=== PATIENT | male | born 1975 | race Caucasian/White ===

== ENCOUNTER 2018-05-15 16:57 | Emergency (ER) | payer OTHER ==
[2018-05-15 17:38] VITALS: TEMP 98.2
[2018-05-15] MEDS ORDERED: IPRATROPIUM-ALBUTEROL 3 ML NEB INHALATION STA (18:11)
--- NOTE | 2018-05-15 18:13 | ED ---
General Adult HPI - General Chief complaint: Shortness of Breath Stated complaint: SOB Time Seen by Provider: 05/15/18 17:54 Source: patient, RN notes reviewed, old records reviewed Mode of arrival: ambulatory Limitations: no limitations - History of Present Illness Initial comments: 42-year-old male presents for evaluation of dyspnea, cough, chest tightness. Symptoms began today. He has had nonproductive cough. Denies URI symptoms. Denies fever or chills. Chest pain and tightness is substernal and left-sided chest. Patient denies significant abdominal pain. Denies vomiting or diarrhea. He has past medical history of CAD with OK approximately 10 years ago. No history of asthma or COPD. Patient is a nonsmoker. - Related Data Home Medications Medication Instructions Recorded Confirmed Albuterol Inhaler [Ventolin Hfa 1 puff INHALATION RT-QID 05/15/18 05/15/18 Inhaler] Amitriptyline HCl [Elavil] 25 mg PO HS 05/15/18 05/15/18 Cholecalciferol [Vitamin D3] 5,000 unit PO DAILY 05/15/18 05/15/18 Cyclobenzaprine [Flexeril] 10 mg PO TID PRN 05/15/18 05/15/18 Gabapentin 800 mg PO QID 05/15/18 05/15/18 Meloxicam [Mobic] 15 mg PO DAILY 05/15/18 05/15/18 Metoprolol Tartrate [Lopressor] 25 mg PO HS 05/15/18 05/15/18 Omeprazole 20 mg PO DAILY 05/15/18 05/15/18 Simvastatin [Zocor] 20 mg PO HS 05/15/18 05/15/18 Topiramate [Qudexy Xr] 50 mg PO DAILY 05/15/18 05/15/18 Triamterene-Hctz 37.5-25Mg 1 tab PO DAILY 05/15/18 05/15/18 [Maxzide 37.5-25] tiZANidine [Zanaflex] 8 mg PO BID PRN 05/15/18 05/15/18 traMADol HCL [Ultram] 50 mg PO BID 05/15/18 05/15/18 Previous Rx's Medication Instructions Recorded Oseltamivir [Tamiflu] 75 mg PO Q12HR #10 cap 05/15/18 Allergies Allergy/AdvReac Type Severity Reaction Status Date / Time No Known Allergies Allergy Verified 05/15/18 18:28 Review of Systems ROS Statement: Those systems with pertinent positive or pertinent negative responses have been documented in the HPI. ROS Other: All systems not noted in ROS Statement are negative. Past Medical History Past Medical History: Coronary Artery Disease (CAD), Hyperlipidemia, Hypertension, Myocardial Infarction ([place]) History of Any Multi-Drug Resistant Organisms: None Reported Past Surgical History: No Surgical Hx Reported Past Psychological History: No Psychological Hx Reported Smoking Status: Never smoker Past Alcohol Use History: None Reported Past Drug Use History: None Reported General Exam Limitations: no limitations General appearance: alert, in no apparent distress Head exam: Present: atraumatic, normocephalic Eye exam: Present: normal appearance, EOMI ENT exam: Present: normal exam Neck exam: Present: normal inspection. Absent: tenderness, meningismus Respiratory exam: Present: respiratory distress (mild), wheezes, rhonchi Cardiovascular Exam: Present: normal rhythm, tachycardia GI/Abdominal exam: Present: soft. Absent: distended, tenderness Extremities exam: Present: normal inspection, normal capillary refill. Absent: pedal edema, calf tenderness Neurological exam: Present: alert, oriented X3, CN II-XII intact. Absent: motor sensory deficit Psychiatric exam: Present: normal affect, normal mood Skin exam: Present: warm, dry, intact. Absent: cyanosis, diaphoretic, erythema Course Vital Signs 05/15/18 05/15/18 05/15/18 17:31 18:38 18:49 Temperature 98.2 F Pulse Rate 121 H 128 H 123 H Respiratory 20 20 20 Rate Blood Pressure 112/57 O2 Sat by Pulse 95 Oximetry 05/15/18 19:30 Temperature Pulse Rate 118 H Respiratory Rate Blood Pressure 134/79 O2 Sat by Pulse 96 Oximetry - Reevaluation(s) Reevaluation #1: 05/15/18 20:15 Patient's symptoms improved with albuterol, does have albuterol at home EKG Findings - EKG Comments: EKG Findings:: EKG: Sinus tachycardia, some baseline artifact, no definitive signs of acute ischemia, no ST segment elevation, ventricular rate of 121, NV interval 148, QRS duration 86, QTC 448 Medical Decision Making - Medical Decision Making 42-year-old male with cough, dyspnea, and chest tightness. Patient's symptoms began today. Denies fever or chills. Denies URI symptoms. Cough is dry in nature. Workup in the emergency department reveals normal CBC, CMP shows mild dehydration with creatinine 1.32, lactic acid normal 1.5, d-dimer and troponin are negative. Chest x-ray negative for focal pneumonia. Patient is influenza a positive. Given the duration of his symptoms will be initiated on Tamiflu. - Lab Data Result diagrams: 05/15/18 18:10 05/15/18 18:10 Lab Results 05/15/18 05/15/18 05/15/18 Range/Units 18:10 18:10 18:10 WBC 10.3 (3.8-10.6) k/uL RBC 5.72 (4.30-5.90) m/uL Hgb 16.5 (13.0-17.5) gm/dL Hct 48.5 (39.0-53.0) % MCV 84.8 (80.0-100.0) fL MCH 28.8 (25.0-35.0) pg MCHC 33.9 (31.0-37.0) g/dL RDW 13.0 (11.5-15.5) % Plt Count 238 (150-450) k/uL Neutrophils % 85 % Lymphocytes % 5 % Monocytes % 7 % Eosinophils % 1 % Basophils % 0 % Neutrophils # 8.7 H (1.3-7.7) k/uL Lymphocytes # 0.5 L (1.0-4.8) k/uL Monocytes # 0.7 (0-1.0) k/uL Eosinophils # 0.1 (0-0.7) k/uL Basophils # 0.0 (0-0.2) k/uL PT 10.3 (9.0-12.0) sec INR 1.0 (<1.2) APTT 26.6 (22.0-30.0) sec D-Dimer 0.40 (<0.60) mg/L FEU Sodium 135 L (137-145) mmol/L Potassium 3.5 (3.5-5.1) mmol/L Chloride 98 (98-107) mmol/L Carbon Dioxide 26 (22-30) mmol/L Anion Gap 11 mmol/L BUN 15 (9-20) mg/dL Creatinine 1.33 H (0.66-1.25) mg/dL Est GFR (CKD-EPI)AfAm 75 (>60 ml/min/1.73 sqM) Est GFR (CKD-EPI)NonAf 65 (>60 ml/min/1.73 sqM) Glucose 116 H (74-99) mg/dL Plasma Lactic Acid Leonard (0.7-2.0) mmol/L Calcium 10.3 H (8.4-10.2) mg/dL Magnesium 1.8 (1.6-2.3) mg/dL Total Bilirubin 0.8 (0.2-1.3) mg/dL AST 60 H (17-59) U/L ALT 103 H (21-72) U/L Alkaline Phosphatase 83 (38-126) U/L Troponin I (0.000-0.034) ng/mL NT-Pro-B Natriuret Pep pg/mL Total Protein 7.4 (6.3-8.2) g/dL Albumin 4.4 (3.5-5.0) g/dL Influenza Type A RNA (Not Detectd) Influenza Type B (PCR) (Not Detectd) 05/15/18 05/15/18 05/15/18 Range/Units 18:10 18:10 18:10 WBC (3.8-10.6) k/uL RBC (4.30-5.90) m/uL Hgb (13.0-17.5) gm/dL Hct (39.0-53.0) % MCV (80.0-100.0) fL MCH (25.0-35.0) pg MCHC (31.0-37.0) g/dL RDW (11.5-15.5) % Plt Count (150-450) k/uL Neutrophils % % Lymphocytes % % Monocytes % % Eosinophils % % Basophils % % Neutrophils # (1.3-7.7) k/uL Lymphocytes # (1.0-4.8) k/uL Monocytes # (0-1.0) k/uL Eosinophils # (0-0.7) k/uL Basophils # (0-0.2) k/uL PT (9.0-12.0) sec INR (<1.2) APTT (22.0-30.0) sec D-Dimer (<0.60) mg/L FEU Sodium (137-145) mmol/L Potassium (3.5-5.1) mmol/L Chloride (98-107) mmol/L Carbon Dioxide (22-30) mmol/L Anion Gap mmol/L BUN (9-20) mg/dL Creatinine (0.66-1.25) mg/dL Est GFR (CKD-EPI)AfAm (>60 ml/min/1.73 sqM) Est GFR (CKD-EPI)NonAf (>60 ml/min/1.73 sqM) Glucose (74-99) mg/dL Plasma Lactic Acid Leonard (0.7-2.0) mmol/L Calcium (8.4-10.2) mg/dL Magnesium (1.6-2.3) mg/dL Total Bilirubin (0.2-1.3) mg/dL AST (17-59) U/L ALT (21-72) U/L Alkaline Phosphatase (38-126) U/L Troponin I <0.012 (0.000-0.034) ng/mL NT-Pro-B Natriuret Pep 62 pg/mL Total Protein (6.3-8.2) g/dL Albumin (3.5-5.0) g/dL Influenza Type A RNA Detected H (Not Detectd) Influenza Type B (PCR) Not Detected (Not Detectd) 05/15/18 Range/Units 18:10 WBC (3.8-10.6) k/uL RBC (4.30-5.90) m/uL Hgb (13.0-17.5) gm/dL Hct (39.0-53.0) % MCV (80.0-100.0) fL MCH (25.0-35.0) pg MCHC (31.0-37.0) g/dL RDW (11.5-15.5) % Plt Count (150-450) k/uL Neutrophils % % Lymphocytes % % Monocytes % % Eosinophils % % Basophils % % Neutrophils # (1.3-7.7) k/uL Lymphocytes # (1.0-4.8) k/uL Monocytes # (0-1.0) k/uL Eosinophils # (0-0.7) k/uL Basophils # (0-0.2) k/uL PT (9.0-12.0) sec INR (<1.2) APTT (22.0-30.0) sec D-Dimer (<0.60) mg/L FEU Sodium (137-145) mmol/L Potassium (3.5-5.1) mmol/L Chloride (98-107) mmol/L Carbon Dioxide (22-30) mmol/L Anion Gap mmol/L BUN (9-20) mg/dL Creatinine (0.66-1.25) mg/dL Est GFR (CKD-EPI)AfAm (>60 ml/min/1.73 sqM) Est GFR (CKD-EPI)NonAf (>60 ml/min/1.73 sqM) Glucose (74-99) mg/dL Plasma Lactic Acid Leonard 1.5 (0.7-2.0) mmol/L Calcium (8.4-10.2) mg/dL Magnesium (1.6-2.3) mg/dL Total Bilirubin (0.2-1.3) mg/dL AST (17-59) U/L ALT (21-72) U/L Alkaline Phosphatase (38-126) U/L Troponin I (0.000-0.034) ng/mL NT-Pro-B Natriuret Pep pg/mL Total Protein (6.3-8.2) g/dL Albumin (3.5-5.0) g/dL Influenza Type A RNA (Not Detectd) Influenza Type B (PCR) (Not Detectd) Disposition Clinical Impression: Influenza A Disposition: HOME SELF-CARE Condition: Good Instructions (If sedation given, give patient instructions): Influenza (ED) Prescriptions: Oseltamivir [Tamiflu] 75 mg PO Q12HR #10 cap Is patient prescribed a controlled substance at d/c from ED?: No Referrals: Ruddy Szymanski MD [Primary Care Provider] - 1-2 days Time of Disposition: 20:16
[2018-05-15 18:29] LABS: Basophils % (A) 0 %; Eosinophils # (A) 0.1 k/uL (0-0.7); Eosinophils % (A) 1 %; HCT 48.5 % (39.0-53.0); HGB 16.5 gm/dL (13.0-17.5); Lymphocytes # (A) 0.5 k/uL (1.0-4.8); Lymphocytes % (A) 5 %; MCH 28.8 pg (25.0-35.0); MCHC 33.9 g/dL (31.0-37.0); MCV 84.8 fL (80.0-100.0); Mean Platelet Volume 7.5; Monocytes # (A) 0.7 k/uL (0-1.0); Monocytes % (A) 7 %; Neutrophils # (A) 8.7 k/uL (1.3-7.7); Neutrophils % (A) 85 %; Platelet Count 238 k/uL (150-450); RBC 5.72 m/uL (4.30-5.90); WBC 10.3 k/uL (3.8-10.6)
[2018-05-15 18:46] LABS: Albumin 4.4 g/dL (3.5-5.0); Calcium 10.3 mg/dL (8.4-10.2); D-Dimer 0.4 mg/L FEU (<0.60); Magnesium 1.8 mg/dL (1.6-2.3); Partial Thromboplastin Time 26.6 sec (22.0-30.0); Potassium 3.5 mmol/L (3.5-5.1); Prothrombin Time 10.3 sec (9.0-12.0); Total Bilirubin 0.8 mg/dL (0.2-1.3); Total Protein 7.4 g/dL (6.3-8.2)
[2018-05-15] MEDS ORDERED: OSELTAMIVIR 75 MG CAP PO STA (18:57)
--- NOTE | 2018-05-15 19:20 | XR ---
EXAMINATION TYPE: XR chest 2V DATE OF EXAM: 05/15/2018 COMPARISON: NONE HISTORY: Short of breath. Chest tightness TECHNIQUE: Frontal and lateral views of the chest are obtained. FINDINGS: Heart and mediastinum are normal. Lungs are clear. Diaphragm is normal. Bony thorax appear s normal. There are chest leads. IMPRESSION: Normal chest.
[2018-05-15] MEDS ORDERED: SODIUM CHLORIDE 0.9% 1,000 ML IV ONE (20:03)
[2018-05-15 21:03] VITALS: BP 125/95; PULSE 78; RESP 16
== END 2018-05-15 21:00 | disposition home or self-care (01) ==
LOC: EC 16:57
DX: J10.1 Influenza due to other identified influenza virus with other respiratory manifestations (principal); E78.5 Hyperlipidemia, unspecified; I10 Essential (primary) hypertension; I25.2 Old myocardial infarction; Z79.1 Long term (current) use of non-steroidal anti-inflammatories (NSAID); Z79.899 Other long term (current) drug therapy
CPT/HCPCS: 36415; 71046; 80053; 83605; 83735; 83880; 84484; 85025; 85379; 85610; 85730; 87040; 87502; 93005; 94640; 96360; 99285

== ENCOUNTER 2018-06-20 15:05 | Emergency (ER) | payer OTHER ==
[2018-06-20 15:34] VITALS: BP 161/120; PULSE 88; RESP 18; TEMP 98.6
[2018-06-20] MEDS ORDERED: DEXAMETHASONE SOD PHOSPHATE 10 MG/ML 1 ML VIAL IM STA (16:15)
[2018-06-20] MEDS ORDERED: IBUPROFEN 800 MG TAB PO STA (16:15)
--- NOTE | 2018-06-20 16:18 | ED ---
Extremity Problem HPI - General Chief complaint: Extremity Problem,Nontraumatic Stated complaint: Chest & Arm pain Time Seen by Provider: 06/20/18 15:44 Source: patient, RN notes reviewed, old records reviewed Mode of arrival: ambulatory Limitations: no limitations - History of Present Illness Initial comments: This is a 42-year-old male to the ER for evaluation. Patient presents today for evaluation of a left elbow pain pain down left arm. No trauma noted. Pain is mainly in the elbow which is something pins in the wound to his pinky. Patient has had prior x-rays with no significant findings. Her symptoms 3 weeks no modifying factors for chest pain was worse with moving worse with palpation. No headaches. No neck pain. MD Complaint: extremity pain, joint pain (Left elbow) -: week(s) (3) Location: left, upper extremity History of Same: Yes -: Yes arthralgia Radiation: proximal Severity scale (1-10): 3 Quality: aching, sharp Consistency: constant Improves with: nothing Worsens with: nothing - Related Data Home Medications Medication Instructions Recorded Confirmed Albuterol Inhaler [Ventolin Hfa 1 puff INHALATION RT-QID 05/15/18 05/15/18 Inhaler] Amitriptyline HCl [Elavil] 25 mg PO HS 05/15/18 05/15/18 Cholecalciferol [Vitamin D3] 5,000 unit PO DAILY 05/15/18 05/15/18 Cyclobenzaprine [Flexeril] 10 mg PO TID PRN 05/15/18 05/15/18 Gabapentin 800 mg PO QID 05/15/18 05/15/18 Meloxicam [Mobic] 15 mg PO DAILY 05/15/18 05/15/18 Metoprolol Tartrate [Lopressor] 25 mg PO HS 05/15/18 05/15/18 Omeprazole 20 mg PO DAILY 05/15/18 05/15/18 Simvastatin [Zocor] 20 mg PO HS 05/15/18 05/15/18 Topiramate [Qudexy Xr] 50 mg PO DAILY 05/15/18 05/15/18 Triamterene-Hctz 37.5-25Mg 1 tab PO DAILY 05/15/18 05/15/18 [Maxzide 37.5-25] tiZANidine [Zanaflex] 8 mg PO BID PRN 05/15/18 05/15/18 traMADol HCL [Ultram] 50 mg PO BID 05/15/18 05/15/18 Previous Rx's Medication Instructions Recorded Oseltamivir [Tamiflu] 75 mg PO Q12HR #10 cap 05/15/18 Naproxen [Naprosyn] 500 mg PO Q12HR PRN #30 tab 06/20/18 Allergies Allergy/AdvReac Type Severity Reaction Status Date / Time No Known Allergies Allergy Verified 06/20/18 15:34 Review of Systems ROS Statement: Those systems with pertinent positive or pertinent negative responses have been documented in the HPI. ROS Other: All systems not noted in ROS Statement are negative. Past Medical History Past Medical History: Coronary Artery Disease (CAD), Hyperlipidemia, Hypertensio n, Myocardial Infarction ([place]) History of Any Multi-Drug Resistant Organisms: None Reported Past Surgical History: No Surgical Hx Reported Past Psychological History: No Psychological Hx Reported Smoking Status: Never smoker Past Alcohol Use History: None Reported Past Drug Use History: None Reported General Exam - General Exam Comments Initial Comments: Patient does have tenderness to palpation over his ulnar artery, + tinel Limitations: no limitations General appearance: alert, in no apparent distress Head exam: Present: atraumatic, normocephalic, normal inspection Eye exam: Present: normal appearance, PERRL, EOMI. Absent: scleral icterus, conjunctival injection, periorbital swelling ENT exam: Present: normal exam, mucous membranes moist Neck exam: Present: normal inspection. Absent: tenderness, meningismus, lymphadenopathy Respiratory exam: Present: normal lung sounds bilaterally. Absent: respiratory distress, wheezes, rales, rhonchi, stridor Cardiovascular Exam: Present: regular rate, normal rhythm, normal heart sounds. Absent: systolic murmur, diastolic murmur, rubs, gallop, clicks GI/Abdominal exam: Present: soft, normal bowel sounds. Absent: distended, tenderness, guarding, rebound, rigid Extremities exam: Present: normal inspection, full ROM, normal capillary refill. Absent: tenderness, pedal edema, joint swelling, calf tenderness Back exam: Present: normal inspection Neurological exam: Present: alert, oriented X3, CN II-XII intact Psychiatric exam: Present: normal affect, normal mood Skin exam: Present: warm, dry, intact, normal color. Absent: rash Course Vital Signs 06/20/18 15:31 Temperature 98.6 F Pulse Rate 88 Respiratory 18 Rate Blood Pressure 161/120 O2 Sat by Pulse 96 Oximetry - Reevaluation(s) Reevaluation #1: 06/20/18 16:35 Patient's x-rays are reviewed medical record is reviewed Medical Decision Making - Medical Decision Making 42 male the ER for left elbow pain, left ulnar inflammation, paresthesia. 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
== END 2018-06-20 16:37 | disposition home or self-care (01) ==
LOC: EC 15:05
DX: G56.22 Lesion of ulnar nerve, left upper limb (principal); I25.10 Atherosclerotic heart disease of native coronary artery without angina pectoris; E78.5 Hyperlipidemia, unspecified; I10 Essential (primary) hypertension; I25.2 Old myocardial infarction; Z79.1 Long term (current) use of non-steroidal anti-inflammatories (NSAID); Z79.899 Other long term (current) drug therapy
CPT/HCPCS: 99285; 96372; J1100

== ENCOUNTER → 2018-08-21 | Outpatient (CLI) | payer OTHER ==
[~2018-08-21] MED LIST: DOBUTamine DRIP for NUC MED 500 MG in DEXTROSE/WATER 1 250ML.BAG IV ONE; METOPROLOL TARTRATE 5 MG/5 ML VIAL IVP ONE
--- NOTE | 2018-08-22 11:12 | ECHOS ---
STRESS ECHOCARDIOGRAM INDICATIONS: Dyspnea. BASELINE HEART RATE: 94 BASELINE BLOOD PRESSURE: 148/108 MAXIMUM HEART RATE: 149 MAXIMUM BLOOD PRESSURE: 215/102 85% MPHR: 149 100% MPHR: 175 MAXIMUM STAGE REACHED: 3 TOTAL EXERCISE TIME: 8:15 CLINICAL INFORMATION: STRESS DATA: Pretesting physical examination showed a heart rate of 94, pressure is 148/108 mmHg. Baseline EKG showed sinus mechanism. Dobutamine infusion at a dose of 10 mcg/kg per minute was initiated and increased to 30 mcg/kg per minute. Max heart rate was 149, which is 100% of maximum predicted heart rate. Maximum blood pressure was 215/102 mmHg. Clinically, the patient did not have any symptoms of chest pain or discomfort. The EKG did not show any significant ST or T-wave abnormalities concerning for ischemia. ECHOCARDIOGRAM IMAGES: On echocardiogram images from parasternal short show parasternal long axis view, parasternal short axis view, apical 4 chamber and apical 2 chamber view were obtained as the baseline images, at low dose dobutamine infusion, at peak heart rate, as well as on recovery. The echocardiogram images showed overall good augmentation in the left ventricular systolic function without any evidence of wall motion abnormalities concerning for ischemia. CONCLUSION: 1. Normal EKG in response to dobutamine. 2. Normal echocardiogram in response to dobutamine. 3. Essentially normal dobutamine stress test for the patient. MMODL / IJN: [id number] /
== END | disposition home or self-care (01) ==
LOC: RADNMMAIN 08:40
PROVIDERS: ATTEND Family Medicine
DX: R06.09 Other forms of dyspnea (principal)
CPT/HCPCS: C8930; J1250; Q9950; 93351

== ENCOUNTER 2018-10-10 18:49 | Emergency (ER) | payer OTHER ==
[2018-10-10 19:02] VITALS: BP 144/113; PULSE 113; RESP 18; TEMP 98.1
[2018-10-10 20:14] LABS: Glucose,Whole Blood 127 mg/dL (75-99)
--- NOTE | 2018-10-10 20:20 | ED ---
General Adult HPI - General Chief complaint: Extremity Injury, Lower Stated complaint: Feet hurt Time Seen by Provider: 10/10/18 19:59 Source: patient Mode of arrival: ambulatory Limitations: no limitations - History of Present Illness Initial comments: Patient is a 43-year-old male presents emergency Department with bilateral feet pain. Patient reports bilateral chronic for pain and was placed on Neurontin by his primary care and states the pain has resolved but still felt pins and needles on the plantar aspect of bilateral feet. Patient reports his primary care switched his medication from Neurontin to Januvia. Patient states that he is not a diabetic. Patient reports his pain in bilateral feet has returned. Patient denies any trauma to both feet. Patient reports pain on palpation that is not exacerbated with any movement of the foot. Patient denies any abrasions, lacerations, edema, erythema or skin discoloration on either foot. - Related Data Home Medications Medication Instructions Recorded Confirmed Albuterol Inhaler [Ventolin Hfa 1 puff INHALATION RT-QID 05/15/18 05/15/18 Inhaler] Amitriptyline HCl [Elavil] 25 mg PO HS 05/15/18 05/15/18 Cholecalciferol [Vitamin D3] 5,000 unit PO DAILY 05/15/18 05/15/18 Cyclobenzaprine [Flexeril] 10 mg PO TID PRN 05/15/18 05/15/18 Gabapentin 800 mg PO QID 05/15/18 05/15/18 Meloxicam [Mobic] 15 mg PO DAILY 05/15/18 05/15/18 Metoprolol Tartrate [Lopressor] 25 mg PO HS 05/15/18 05/15/18 Omeprazole 20 mg PO DAILY 05/15/18 05/15/18 Simvastatin [Zocor] 20 mg PO HS 05/15/18 05/15/18 Topiramate [Qudexy Xr] 50 mg PO DAILY 05/15/18 05/15/18 Triamterene-Hctz 37.5-25Mg 1 tab PO DAILY 05/15/18 05/15/18 [Maxzide 37.5-25] tiZANidine [Zanaflex] 8 mg PO BID PRN 05/15/18 05/15/18 traMADol HCL [Ultram] 50 mg PO BID 05/15/18 05/15/18 Previous Rx's Medication Instructions Recorded Oseltamivir [Tamiflu] 75 mg PO Q12HR #10 cap 05/15/18 Naproxen [Naprosyn] 500 mg PO Q12HR PRN #30 tab 06/20/18 Allergies Allergy/AdvReac Type Severity Reaction Status Date / Time No Known Allergies Allergy Verified 10/10/18 18:59 Review of Systems ROS Statement: Those systems with pertinent positive or pertinent negative responses have been documented in the HPI. ROS Other: All systems not noted in ROS Statement are negative. Past Medical History Past Medical History: Coronary Artery Disease (CAD), Hyperlipidemia, Hypertension, Myocardial Infarction ([place]) Additional Past Medical History / Comment(s): neuropathy History of Any Multi-Drug Resistant Organisms: None Reported Past Surgical History: No Surgical Hx Reported Past Psychological History: No Psychological Hx Reported Smoking Status: Never smoker Past Alcohol Use History: None Reported Past Drug Use History: None Reported General Exam Limitations: no limitations General appearance: alert, in no apparent distress, obese Head exam: Present: atraumatic, normocephalic, normal inspection Eye exam: Present: normal appearance, PERRL, EOMI. Absent: scleral icterus, conjunctival injection ENT exam: Present: normal exam, mucous membranes moist, normal external ear exam Neck exam: Present: normal inspection, full ROM Respiratory exam: Present: normal lung sounds bilaterally. Absent: rhonchi Cardiovascular Exam: Present: normal rhythm, tachycardia, normal heart sounds Extremities exam: Present: normal inspection, full ROM, tenderness (Tenderness even with mild palpation on the plantar aspect of bilateral feet), normal capillary refill, other (+2 dorsalis pedis and posterior tibialis bilaterally). Absent: calf tenderness Back exam: Present: normal inspection, full ROM Neurological exam: Present: alert, oriented X3 Psychiatric exam: Present: normal affect, normal mood Skin exam: Present: warm, intact, normal color Course Vital Signs 10/10/18 18:59 Temperature 98.1 F Pulse Rate 113 H Respiratory 18 Rate Blood Pressure 144/113 O2 Sat by Pulse 96 Oximetry Medical Decision Making - Medical Decision Making Patient is a 43-year-old male presents emergency department with bilateral foot pain. Based on history and physical examination I suspect the patient to have a peripheral neuropathy. Patient advised to return to his primary care and discuss the option of restarting his Neurontin to alleviate the lower extremity symptoms. Accu-Chek in the ED was 125. Patient has been taking the Januvia for a week as prescribed. Patient will be discharged without any medication advised to follow-up with his primary care. Strict return parameters were jamel mejias discussed with patient was understanding and agreeable. Case discussed with physician. - Lab Data Lab Results 10/10/18 Range/Units 20:12 POC Glucose (mg/dL) 127 H (75-99) mg/dL POC Glu [place] Helper ID Sandeep Bowden A Disposition Clinical Impression: Chronic pain of both feet Disposition: HOME SELF-CARE Condition: Stable Instructions (If sedation given, give patient instructions): Diabetic Peripheral Neuropathy (ED) Additional Instructions: Please follow up with primary care. Please return to emergency department if symptoms worsen. Is patient prescribed a controlled substance at d/c from ED?: No Referrals: Nonstaff,Physician [Primary Care Provider] - 1-2 days Time of Disposition: 20:19
== END 2018-10-10 20:43 | disposition home or self-care (01) ==
LOC: EC 18:49
DX: G89.29 Other chronic pain (principal); M79.672 Pain in left foot; M79.671 Pain in right foot; R73.9 Hyperglycemia, unspecified; I25.10 Atherosclerotic heart disease of native coronary artery without angina pectoris; E78.5 Hyperlipidemia, unspecified; I10 Essential (primary) hypertension; G62.9 Polyneuropathy, unspecified; I25.2 Old myocardial infarction; Z79.1 Long term (current) use of non-steroidal anti-inflammatories (NSAID); Z79.891 Long term (current) use of opiate analgesic; Z79.899 Other long term (current) drug therapy
CPT/HCPCS: 36415; 99283

== ENCOUNTER 2020-02-04 17:37 | Emergency (ER) | payer OTHER ==
[2020-02-04 17:57] VITALS: RESP 18
[2020-02-04] MEDS ORDERED: ONDANSETRON 4 MG/2 ML VIAL IVP STA (18:20)
[2020-02-04] MEDS ORDERED: SODIUM CHLORIDE 0.9% 1,000 ML IV STA ×2 (18:20→18:43)
[2020-02-04 18:48] LABS: Basophils # (A) 0.1 k/uL (0-0.2); Basophils % (A) 1 %; Eosinophils # (A) 0.2 k/uL (0-0.7); Eosinophils % (A) 2 %; HCT 47.8 % (39.0-53.0); HGB 16.5 gm/dL (13.0-17.5); Lymphocytes % (A) 24 %; MCHC 34.4 g/dL (31.0-37.0); MCV 87.2 fL (80.0-100.0); Mean Platelet Volume 8.6; Monocytes # (A) 0.5 k/uL (0-1.0); Monocytes % (A) 6 %; Neutrophils # (A) 5.4 k/uL (1.3-7.7); Neutrophils % (A) 65 %; Platelet Count 247 k/uL (150-450); RBC 5.48 m/uL (4.30-5.90); RDW 12.9 % (11.5-15.5); WBC 8.4 k/uL (3.8-10.6)
[2020-02-04 19:09] LABS: Albumin 4.1 g/dL (3.5-5.0); Potassium 3.4 mmol/L (3.5-5.1); Total Bilirubin 0.4 mg/dL (0.2-1.3); Total Protein 7.1 g/dL (6.3-8.2)
--- NOTE | 2020-02-04 19:31 | ED ---
General Adult HPI - General Chief complaint: Nausea/Vomiting/Diarrhea Stated complaint: Diarrhea 30days Time Seen by Provider: 02/04/20 18:19 Source: patient Mode of arrival: ambulatory Limitations: no limitations - History of Present Illness Initial comments: 44-year-old male presenting to the emergency department with a chief complaint of diarrhea. Patient states he's been having these symptoms for about one month after he had a fall on the left side of his body. Patient states he had a large bruise for about 1-2 weeks near his left hip. He denies any back pain or leg pain at this time. He reports profuse watery diarrhea with no hematochezia or melena. Denies any abdominal pain nausea vomiting. States he has a strong family history of IBS but he has been never diagnosed. Never had a colonoscopy. No chest pain shortness of breath. States he is tolerating fluids without a problem. He reports taking Imodium with no improvement in symptoms. - Related Data Home Medications Medication Instructions Recorded Confirmed Amitriptyline HCl [Elavil] 25 mg PO HS 05/15/18 02/04/20 Cholecalciferol [Vitamin D3] 5,000 unit PO DAILY 05/15/18 02/04/20 Cyclobenzaprine [Flexeril] 10 mg PO TID PRN 05/15/18 02/04/20 Gabapentin 800 mg PO QID 05/15/18 02/04/20 Simvastatin [Zocor] 20 mg PO HS 05/15/18 02/04/20 Triamterene-Hctz 37.5-25Mg 1 tab PO DAILY 05/15/18 02/04/20 [Maxzide 37.5-25] Albuterol Sulfate [Ventolin HFA] 1 - 2 puff INHALATION RT-Q6H PRN 02/04/20 02/04/20 Metoprolol Tartrate [Lopressor] 50 mg PO BID 02/04/20 02/04/20 Omeprazole 40 mg PO DAILY 02/04/20 02/04/20 Previous Rx's Medication Instructions Recorded Diphenoxylate HCl/Atropine 2 tab PO QID PRN 3 Days #24 tab 02/04/20 [Lomotil 2.5-0.025 mg Tablet] Allergies Allergy/AdvReac Type Severity Reaction Status Date / Time No Known Allergies Allergy Verified 02/04/20 19:19 Review of Systems ROS Statement: Those systems with pertinent positive or pertinent negative responses have been documented in the HPI. ROS Other: All systems not noted in ROS Statement are negative. Past Medical History Past Medical History: Coronary Artery Disease (CAD), Hyperlipidemia, Hypertension, Myocardial Infarction ([place]) Additional Past Medical History / Comment(s): neuropathy History of Any Multi-Drug Resistant Organisms: None Reported Past Surgical History: No Surgical Hx Reported Past Psychological History: No Psychological Hx Reported Smoking Status: Former smoker Past Alcohol Use History: None Reported Past Drug Use History: Marijuana General Exam Limitations: no limitations General appearance: alert, in no apparent distress, obese Head exam: Present: atraumatic, normocephalic, normal inspection Eye exam: Present: normal appearance, PERRL, EOMI Pupils: Present: normal accommodation ENT exam: Present: normal exam, normal oropharynx, mucous membranes moist, TM's normal bilaterally, normal external ear exam Neck exam: Present: normal inspection, full ROM. Absent: tenderness Respiratory exam: Present: normal lung sounds bilaterally. Absent: respiratory distress, wheezes, rales Cardiovascular Exam: Present: regular rate, normal rhythm, normal heart sounds. Absent: systolic murmur, diastolic murmur GI/Abdominal exam: Present: soft. Absent: distended, tenderness, guarding, rebound Extremities exam: Present: normal inspection, full ROM, normal capillary refill, other (Plus to all her radial pulses bilateral.). Absent: tenderness, pedal edema, joint swelling, calf tenderness Back exam: Present: normal inspection, full ROM. Absent: tenderness, CVA tenderness (R), CVA tenderness (L), paraspinal tenderness, vertebral tenderness Neurological exam: Present: alert, oriented X3, normal gait Psychiatric exam: Present: normal affect, normal mood. Absent: depressed, agitated Skin exam: Present: warm, dry, intact, normal color Course Vital Signs 02/04/20 02/04/20 17:54 20:52 Temperature 99.0 F 97.7 F Pulse Rate 96 84 Respiratory 18 18 Rate Blood Pressure 135/86 158/84 O2 Sat by Pulse 98 96 Oximetry Medical Decision Making - Medical Decision Making 44-year-old male presenting to emergency Department with chief complaint of diarrhea. On physical examination, patient has no trauma on the left hip region. No abdominal back tenderness. CBC is unremarkable. CMP reveals slight hypokalemia at 3.4. Patient was given oral k-edie. CT of abdomen and pelvis reveals no acute processes. Patient was not able to give a stool sample to rule out C. diff. He also did not give us a urine sample. Discharge the patient with Lomotil. Advised him to follow up with a GI specialist. Also advised him to eat a brat diet. Strict return parameters were thoroughly discussed the patient is a nursing agreeable. Case discussed with physician. - Lab Data Result diagrams: 02/04/20 18:28 02/04/20 18:28 Lab Results 02/04/20 02/04/20 Range/Units 18:28 18:28 WBC 8.4 (3.8-10.6) k/uL RBC 5.48 (4.30-5.90) m/uL Hgb 16.5 (13.0-17.5) gm/dL Hct 47.8 (39.0-53.0) % MCV 87.2 (80.0-100.0) fL MCH 30.0 (25.0-35.0) pg MCHC 34.4 (31.0-37.0) g/dL RDW 12.9 (11.5-15.5) % Plt Count 247 (150-450) k/uL MPV 8.6 Neutrophils % 65 % Lymphocytes % 24 % Monocytes % 6 % Eosinophils % 2 % Basophils % 1 % Neutrophils # 5.4 (1.3-7.7) k/uL Lymphocytes # 2.0 (1.0-4.8) k/uL Monocytes # 0.5 (0-1.0) k/uL Eosinophils # 0.2 (0-0.7) k/uL Basophils # 0.1 (0-0.2) k/uL Sodium 136 L (137-145) mmol/L Potassium 3.4 L (3.5-5.1) mmol/L Chloride 100 (98-107) mmol/L Carbon Dioxide 30 (22-30) mmol/L Anion Gap 6 mmol/L BUN 12 (9-20) mg/dL Creatinine 1.19 (0.66-1.25) mg/dL Est GFR (CKD-EPI)AfAm 84 (>60 ml/min/1.73 sqM) Est GFR (CKD-EPI)NonAf 73 (>60 ml/min/1.73 sqM) Glucose 167 H (74-99) mg/dL Calcium 10.0 (8.4-10.2) mg/dL Total Bilirubin 0.4 (0.2-1.3) mg/dL AST 52 (17-59) U/L ALT 61 H (4-49) U/L Alkaline Phosphatase 72 (38-126) U/L Total Protein 7.1 (6.3-8.2) g/dL Albumin 4.1 (3.5-5.0) g/dL Lipase 98 (23-300) U/L Disposition Clinical Impression: Diarrhea Disposition: HOME SELF-CARE Condition: Stable Instructions (If sedation given, give patient instructions): Chronic Diarrhea (ED) Additional Instructions: Take prescribed medication as directed. bread, rice, applesauce and toast diet. Follow with a GI specialist. Prescriptions: Diphenoxylate HCl/Atropine [Lomotil 2.5-0.025 mg Tablet] 2 tab PO QID PRN 3 Days #24 tab PRN Reason: Diarrhea Is patient prescribed a controlled substance at d/c from ED?: No Referrals: Joel Covington [Primary Care Provider] - 1-2 days Jo-Ann Key MD [STAFF PHYSICIAN] - 1-2 days Time of Disposition: 20:36
--- NOTE | 2020-02-04 20:18 | CT ---
EXAMINATION TYPE: CT abdomen pelvis w con DATE OF EXAM: 02/04/2020 COMPARISON: None HISTORY: Diarrhea x1 month after fall. CT DLP: 2648.6 mGycm Automated exposure control for dose reduction was used. CONTRAST: Performed with IV Contrast, patient injected with 100ml mL of Isovue 300. Lung bases are clear of consolidation. There is no pleural effusion. Heart size is normal. There is n o pericardial effusion. There is mild fatty infiltration of the liver. Spleen is intact. There is no pancreatic mass. Stomach is intact. Gallbladder appears normal. The bile ducts are not dilated. There is no adrenal mass. Kidneys show satisfactory contrast opacification. There is no hydronephrosi s. There is 2 cm cortical cyst posterior left kidney. Ureters are not dilated. There is no retroperit munoz adenopathy. Bladder distends smoothly. There is no inguinal hernia. There is no free fluid in t he pelvis. There is no mesenteric edema. There is no ascites or free air. There is no bowel obstruction. There i s no sign of thickened appendix. Lumbar vertebra have normal alignment. There is no compression fracture. Posterior elements are intac t. The bony pelvis is intact. There is no evidence of hip dysplasia. IMPRESSION: There is mild fatty infiltration of the liver. Otherwise negative exam.
[2020-02-04] MEDS ORDERED: POTASSIUM CHLORIDE ER 20 MEQ TAB.ER PO STA (20:19)
[2020-02-04 20:54] VITALS: BP 158/84; PULSE 84; TEMP 97.7
== END 2020-02-04 20:53 | disposition home or self-care (01) ==
LOC: EC 17:37
DX: R19.7 Diarrhea, unspecified (principal); E87.6 Hypokalemia; I10 Essential (primary) hypertension; E78.5 Hyperlipidemia, unspecified; I25.2 Old myocardial infarction; Z79.899 Other long term (current) drug therapy; Z87.891 Personal history of nicotine dependence
CPT/HCPCS: 80053; 83690; 85025; 74177; 99284; 96360; 96361; Q9967

== ENCOUNTER 2020-02-23 13:06 | Emergency (ER) | payer OTHER ==
[2020-02-23 13:15] VITALS: BP 145/96; PULSE 83; RESP 20; TEMP 98.6
--- NOTE | 2020-02-23 13:31 | ED ---
Recheck HPI - General Chief Complaint: Recheck/Abnormal Lab/Rx Stated Complaint: wants covid test Time Seen by Provider: 02/23/20 13:18 Source: patient, RN notes reviewed, old records reviewed Mode of arrival: ambulatory Limitations: no limitations - History of Present Illness Initial Comments: 44-year-old male presenting emergency department today requesting a Covid 19 test. Patient reports that he was exposed to a sister all last week while he was helping her move. She subsequently developed symptoms and has a positive Covid 19 test. At this time Patient states he has no symptoms including fever chills chest pain shortness breath. Denies nausea or vomiting. Denies loss of taste or smell, denies headache, or sinus drainage. - Related Data Home Medications Medication Instructions Recorded Confirmed Amitriptyline HCl [Elavil] 25 mg PO HS 05/15/18 02/04/20 Cholecalciferol [Vitamin D3] 5,000 unit PO DAILY 05/15/18 02/04/20 Cyclobenzaprine [Flexeril] 10 mg PO TID PRN 05/15/18 02/04/20 Gabapentin 800 mg PO QID 05/15/18 02/04/20 Simvastatin [Zocor] 20 mg PO HS 05/15/18 02/04/20 Triamterene-Hctz 37.5-25Mg 1 tab PO DAILY 05/15/18 02/04/20 [Maxzide 37.5-25] Albuterol Sulfate [Ventolin HFA] 1 - 2 puff INHALATION RT-Q6H PRN 02/04/20 02/04/20 Metoprolol Tartrate [Lopressor] 50 mg PO BID 02/04/20 02/04/20 Omeprazole 40 mg PO DAILY 02/04/20 02/04/20 Previous Rx's Medication Instructions Recorded Diphenoxylate HCl/Atropine 2 tab PO QID PRN 3 Days #24 tab 02/04/20 [Lomotil 2.5-0.025 mg Tablet] Allergies Allergy/AdvReac Type Severity Reaction Status Date / Time No Known Allergies Allergy Verified 02/23/20 13:16 Review of Systems ROS Statement: Those systems with pertinent positive or pertinent negative responses have been documented in the HPI. ROS Other: All systems not noted in ROS Statement are negative. Past Medical History Past Medical History: Coronary Artery Disease (CAD), Hyperlipidemia, Hypertension, Myocardial Infarction ([place]) Additional Past Medical History / Comment(s): neuropathy History of Any Multi-Drug Resistant Organisms: None Reported Past Surgical History: No Surgical Hx Reported Past Psychological History: No Psychological Hx Reported Smoking Status: Former smoker Past Alcohol Use History: None Reported Past Drug Use History: Marijuana General Exam - General Exam Comments Initial Comments: 44-year-old male. Alert and oriented. No distress. Limitations: no limitations General appearance: alert Head exam: Present: atraumatic, normocephalic, normal inspection Eye exam: Present: normal appearance, PERRL, EOMI. Absent: scleral icterus, conjunctival injection, periorbital swelling ENT exam: Present: normal exam, mucous membranes moist Neck exam: Present: normal inspection. Absent: tenderness, meningismus, lymphadenopathy Respiratory exam: Present: normal lung sounds bilaterally. Absent: respiratory distress, wheezes, rales, rhonchi, stridor Cardiovascular Exam: Present: regular rate, normal rhythm, normal heart sounds. Absent: systolic murmur, diastolic murmur, rubs, gallop, clicks GI/Abdominal exam: Present: soft, normal bowel sounds. Absent: distended, tenderness, guarding, rebound, rigid Extremities exam: Present: normal inspection, full ROM, normal capillary refill. Absent: tenderness, pedal edema, joint swelling, calf tenderness Back exam: Present: normal inspection Neurological exam: Present: alert, oriented X3, CN II-XII intact Psychiatric exam: Present: normal affect, normal mood Skin exam: Present: warm, dry, intact, normal color. Absent: rash Course Vital Signs 02/23/20 13:13 Temperature 98.6 F Pulse Rate 83 Respiratory 20 Rate Blood Pressure 145/96 O2 Sat by Pulse 99 Oximetry Medical Decision Making - Medical Decision Making Well-appearing 44-year-old male presents with covid 19 exposure. He denies symptoms. At this time patient's will be given a Covid swab. I discussed with the Patient if he were to develop any concerning symptoms of difficulty in breathing chest pain or severe nausea vomiting diarrhea to return to the ER follow up with his PCP for reevaluation. Disposition Clinical Impression: Encounter for screening laboratory testing for COVID-19 virus Disposition: HOME SELF-CARE Condition: Good Instructions (If sedation given, give patient instructions): Viral Syndrome (ED) Additional Instructions: Patient's avoid contact with other people until results of the test is resulted. Patient can return to the ER or follow-up with PCP if there is any severe developing symptoms including shortness of breath. Is patient prescribed a controlled substance at d/c from ED?: No Referrals: Albania Johnson NPC [Primary Care Provider] - 1-2 days Time of Disposition: 13:30
== END 2020-02-23 13:42 | disposition home or self-care (01) ==
LOC: EC 13:06
DX: Z03.818 Encounter for observation for suspected exposure to other biological agents ruled out (principal); I10 Essential (primary) hypertension; E78.5 Hyperlipidemia, unspecified; I25.2 Old myocardial infarction; Z79.899 Other long term (current) drug therapy; Z87.891 Personal history of nicotine dependence
CPT/HCPCS: 99283; U0003

== ENCOUNTER 2020-07-27 07:42 | Day surgery (SDC) | payer OTHER ==
[2020-07-25 13:30] VITALS: BMI 43.0
[~2020-07-27 07:42] MED LIST changes: -DOBUTamine DRIP for NUC MED 500 MG in DEXTROSE/WATER 1 250ML.BAG IV ONE; +LACTATED RINGERS 1,000 ML IV SCH; +LIDOCAINE 1% (10MG/ML) FOR IV START INTRADERMA PRN; -METOPROLOL TARTRATE 5 MG/5 ML VIAL IVP ONE
[2020-07-27 08:39] VITALS: RESP 16; TEMP 97.4
--- NOTE | 2020-07-27 09:11 | P.GSHP ---
History of Present Illness H&P Date: 07/27/20 CHIEF COMPLAINT: GERD and colon screen HISTORY OF PRESENT ILLNESS: The patient is a 45-year-old male who presents with gastroesophageal reflux disease and need for colon screen. Upper and lower endoscopy were offered for further evaluation and management. PAST MEDICAL HISTORY: Please see list. PAST SURGICAL HISTORY: Please see list. MEDICATIONS: Please see list. ALLERGIES: Please see list. SOCIAL HISTORY: No illicit drug use FAMILY HISTORY: No reports of Crohn disease or ulcerative colitis. REVIEW OF ORGAN SYSTEMS: CONSTITUTIONAL: No reports of fevers or chills. GI: Denies any blood in stools or constipation. PHYSICAL EXAM: VITAL SIGNS: Stable GENERAL: Well-developed pleasant in no acute distress. HEENT: No scleral icterus. Extraocular movements grossly intact. Moist buccal mucosa. NECK: Supple without lymphadenopathy. CHEST: Unlabored respirations. Equal bilateral excursions. CARDIOVASCULAR: Regular rate and rhythm. Distal 2+ pulses. ABDOMEN: Soft, nondistended. MUSCULOSKELETAL: No clubbing, cyanosis, or edema. ASSESSMENT: 1. Gastroesophageal reflux disease 2. Colon screen. PLAN: 1. Recommend proceeding with an upper and lower endoscopy Past Medical History Past Medical History: Coronary Artery Disease (CAD), COPD, Hyperlipidemia, Hypertension, Myocardial Infarction ([place]), Osteoarthritis ([place]) Additional Past Medical History / Comment(s): neuropathy, MIGRAINE HEADACHE Last Myocardial Infarction Date:: 1991 History of Any Multi-Drug Resistant Organisms: None Reported Past Surgical History: No Surgical Hx Reported Past Anesthesia/Blood Transfusion Reactions: No Reported Reaction Additional Past Anesthesia/Blood Transfusion Reaction / Comment(s): FIRST ANESTHETIC Smoking Status: Former smoker - Past Family History Mother Family Medical History: Cancer Additional Family Medical History / Comment(s): BREAST CANCER Sister(s) Family Medical History: Cancer Additional Family Medical History / Comment(s): SISTER -CANCER Medications and Allergies Home Medications Medication Instructions Recorded Confirmed Type Amitriptyline HCl [Elavil] 25 mg PO HS 05/15/18 07/27/20 History Cholecalciferol [Vitamin D3] 5,000 unit PO DAILY 05/15/18 07/27/20 History Cyclobenzaprine [Flexeril] 10 mg PO TID PRN 05/15/18 07/27/20 History Gabapentin 800 mg PO QID 05/15/18 07/27/20 History Simvastatin [Zocor] 20 mg PO HS 05/15/18 07/27/20 History Triamterene-Hctz 37.5-25Mg 1 tab PO DAILY 05/15/18 07/27/20 History [Maxzide 37.5-25] Albuterol Sulfate [Ventolin HFA] 1 - 2 puff INHALATION RT-Q6H PRN 02/04/20 07/27/20 History Diphenoxylate HCl/Atropine 2 tab PO QID PRN 3 Days #24 tab 02/04/20 07/27/20 Rx [Lomotil 2.5-0.025 mg Tablet] Metoprolol Tartrate [Lopressor] 50 mg PO BID 02/04/20 07/27/20 History Omeprazole 40 mg PO DAILY 02/04/20 07/27/20 History Allergies Allergy/AdvReac Type Severity Reaction Status Date / Time No Known Allergies Allergy Verified 07/27/20 08:32 Surgical - Exam Vital Signs Temp Pulse Resp BP Pulse Ox 97.4 F L 91 16 137/78 95 07/27/20 08:37 07/27/20 08:37 07/27/20 08:37 07/27/20 08:37 07/27/20 08:37
[2020-07-27] MEDS ORDERED: PROPOFOL 10 MG/ML 20 ML VIAL IV ONE (09:43)
[2020-07-27] MEDS ORDERED: LIDOCAINE 1% INJ 10MG/ML (20 ML MDV) ONE (09:43)
--- NOTE | 2020-07-27 09:55 | P.PCN ---
Date of Procedure: 07/27/20 Description of Procedure: PREOPERATIVE DIAGNOSIS: Gastroesophageal reflux disease. Morbid obesity. POSTOPERATIVE DIAGNOSIS: Gastritis. Gastroesophageal reflux disease. Fung's esophagus OPERATION: Esophagogastroduodenoscopy with biopsies along antrum and esophagus SURGEON: Jailene Rodriguez MD ANESTHESIA: MAC. INDICATIONS: The patient is a 45-year-old female who presents with a history of reflux disease. Benefits and risks of the procedure were described. Informed consent was obtained. DESCRIPTION: The patient was brought into the endoscopy suite and laid in the left lateral decubitus position. An Olympus gastroscope was passed along the posterior oropharynx down to the distal esophagus where the squamocolumnar junction was encountered at 33 cm from the incisors. The stomach was entered and no bile reflux was found. Additional findings are listed below. Biopsies with cold forceps were obtained of the antrum. The first through third portion of the duodenum was examined and unremarkable. Retroflexion of the scope confirmed Hill grade 2 lower esophageal valve. The squamocolumnar junction demonstrated LA grade D erosive esophagitis. The stomach was desufflated. The patient tolerated the procedure well. FINDINGS: Squamocolumnar junction 33 cm from the incisors. Diaphragmatic hiatus at 40 cm. Long segment Fung's esophagus with multiple 4 quadrant biopsies obtained, 7 cm segment Hill grade 2 lower esophageal valve. LA grade D erosive esophagitis. No active duodenitis. Chronic gastritis RECOMMENDATIONS: Repeat upper endoscopy in one year, 2021
--- NOTE | 2020-07-27 10:17 | P.PCN ---
Date of Procedure: 07/27/20 Description of Procedure: PREOPERATIVE DIAGNOSIS: Change in bowel habits with chronic diarrhea POSTOPERATIVE DIAGNOSIS: Change in bowel habits with chronic diarrhea OPERATION: Colonoscopy to the cecum, ileocecal valve and appendiceal orifice. Colonoscopy with random biopsies SURGEON: Jailene Rodriguez MD. ANESTHESIA: MAC. INDICATIONS: The patient is a 45-year-old male who presents with change in bowel habits and chronic diarrhea. Benefits and risks were described and informed consent was obtained. DESCRIPTION OF PROCEDURE: The patient had undergone Sutab prep. The patient had been brought into the operating room and laid in the left lateral decubitus position. After adequate intravenous sedation, the rectum was examined with 2% lidocaine jelly. No external hemorrhoids were encountered. The rectal tone was within normal limits. No lesions were palpated in the rectal vault. An Olympus colonoscope was advanced until the cecum, ileocecal valve and appendiceal orifice were clearly viewed. The prep was good. No scattered diverticulosis was encountered. No colonic polyps were found. Random cold forceps biopsies were obtained for microscopic colitis. Retroflexion of the scope demonstrated grade 1 internal hemorrhoids without active bleeding or inflammation. The colon was desufflated. The patient had tolerated the procedure well. Withdrawal time was over 6 minutes. FINDINGS: Aronchick preparation quality scale 2 (1-5) Internal hemorrhoids, grade 1 No external prolapsed hemorrhoids. No arteriovenous malformations. No adenomatous polyps. Random biopsies obtained for microscopic colitis RECOMMENDATIONS: Lower endoscopy in 3 years, 2023 Plan - Discharge Summary Discharge Rx Participant: No New Discharge Prescriptions: Continue Simvastatin [Zocor] 20 mg PO HS Cholecalciferol [Vitamin D3 (25 Mcg = 1000 Iu)] 5,000 unit PO DAILY Cyclobenzaprine [Flexeril] 10 mg PO TID PRN PRN Reason: Muscle Spasm Triamterene-Hctz 37.5-25Mg [Maxzide 37.5-25] 1 tab PO DAILY Gabapentin 800 mg PO QID Amitriptyline HCl [Elavil] 25 mg PO HS Albuterol Sulfate [Ventolin HFA] 1 - 2 puff INHALATION RT-Q6H PRN PRN Reason: Shortness Of Breath Metoprolol Tartrate [Lopressor] 50 mg PO BID Omeprazole 40 mg PO DAILY Diphenoxylate HCl/Atropine [Lomotil 2.5-0.025 mg Tablet] 2 tab PO QID PRN 3 Days #24 tab PRN Reason: Diarrhea Discharge Medication List Amitriptyline HCl [Elavil] 25 mg PO HS 05/15/18 [History] Cholecalciferol [Vitamin D3 (25 Mcg = 1000 Iu)] 5,000 unit PO DAILY 05/15/18 [History] Cyclobenzaprine [Flexeril] 10 mg PO TID PRN 05/15/18 [History] Gabapentin 800 mg PO QID 05/15/18 [History] Simvastatin [Zocor] 20 mg PO HS 05/15/18 [History] Triamterene-Hctz 37.5-25Mg [Maxzide 37.5-25] 1 tab PO DAILY 05/15/18 [History] Albuterol Sulfate [Ventolin HFA] 1 - 2 puff INHALATION RT-Q6H PRN 02/04/20 [History] Diphenoxylate HCl/Atropine [Lomotil 2.5-0.025 mg Tablet] 2 tab PO QID PRN 3 Days #24 tab 02/04/20 [Rx] Metoprolol Tartrate [Lopressor] 50 mg PO BID 02/04/20 [History] Omeprazole 40 mg PO DAILY 02/04/20 [History] Follow up Appointment(s)/Referral(s): Jailene Rodriguez MD [STAFF PHYSICIAN] - 08/11/20 Patient Instructions/Handouts: *Surgery [facility] - (Anesthesia) Endoscopy Discharge Instructions, Colonoscopy (GEN) Activity/Diet/Wound Care/Special Instructions: Repeat colonoscopy in 3 years2023 Discharge Disposition: HOME SELF-CARE
[2020-07-27 10:31] VITALS: BP 109/78; PULSE 80
== END 2020-07-27 10:45 | disposition home or self-care (01) ==
LOC: ORWHC2ENDO 07:42
PROVIDERS: ATTEND Surgery Plastic and Reconstructive Surgery
DX: K29.50 Unspecified chronic gastritis without bleeding (principal); K52.9 Noninfective gastroenteritis and colitis, unspecified; K64.0 First degree hemorrhoids; K21.9 Gastro-esophageal reflux disease without esophagitis; K22.70 Barrett's esophagus without dysplasia; E66.01 Morbid (severe) obesity due to excess calories; I25.10 Atherosclerotic heart disease of native coronary artery without angina pectoris; J44.9 Chronic obstructive pulmonary disease, unspecified; E78.5 Hyperlipidemia, unspecified; I10 Essential (primary) hypertension; I25.2 Old myocardial infarction; M19.90 Unspecified osteoarthritis, unspecified site; Z79.899 Other long term (current) drug therapy; Z80.3 Family history of malignant neoplasm of breast; Z87.891 Personal history of nicotine dependence
CPT/HCPCS: 88305; 45380; 43239; J2001; J2704

== ENCOUNTER → 2020-08-11 | Outpatient (CLI) | payer OTHER | END | disposition home or self-care (01) | LOC: LABWHC1 11:59 | PROVIDERS: ATTEND Surgery Plastic and Reconstructive Surgery | DX: R94.31 Abnormal electrocardiogram [ECG] [EKG] (principal); I25.2 Old myocardial infarction | CPT/HCPCS: 36415; 93005 ==

== ENCOUNTER → 2020-08-16 | Outpatient (CLI) | payer OTHER ==
--- NOTE | 2020-08-16 11:28 | US ---
EXAMINATION TYPE: US gallbladder DATE OF EXAM: 08/16/2020 COMPARISON: NONE CLINICAL HISTORY: K81.1 CHOLECYSTITIS. EXAM MEASUREMENTS: Liver Length: 16.5 cm Gallbladder Wall: 0.5 cm CBD: not seen Right Kidney: 10.9 x 5.4 x 4.8 cm Morbidly obese patient with excessive overlying bowel gas. Study extremely limited. Pancreas: Obscured by bowel gas Liver: Increased attenuation, decreased visualization of vessels suggestive of fatty infiltration, v john paul limited views Gallbladder: possible visualization of gallbladder with thickened wall and BRENNAN sign, however views e xtremely limited Evidence for sonographic Remy's sign: no CBD: Obscured by overlying bowel gas Right Kidney: wnl as seen, very limited visualization IMPRESSION: 1. Severely limited study due to overlying bowel gas and morbid obesity. The common duct is not seen. The pancreas is not seen due to overlying bowel gas. The liver is limited in evaluation but appears diffusely fatty infiltrated. 2. There is a wall echo shadow sign of the gallbladder. This may represent a gallbladder full of gall stones versus porcelain gallbladder or much likely emphysematous cystitis. The gallbladder Wall is al so thickened. Clinical correlation for acute/chronic cholecystitis is recommended. Remy's sign was negative per lead neurodiagnostic technologist. 3. Limited visualization of the right kidney due to overlying bowel gas.
== END | disposition home or self-care (01) ==
LOC: RADUSWWP 06:59
PROVIDERS: ATTEND Surgery Plastic and Reconstructive Surgery
DX: K82.8 Other specified diseases of gallbladder (principal); E66.01 Morbid (severe) obesity due to excess calories
CPT/HCPCS: 76705

== ENCOUNTER → 2020-08-25 | Outpatient (CLI) | payer OTHER ==
--- NOTE | 2020-08-25 13:26 | NM ---
Nuclear medicine hepatobiliary scan. HISTORY: Pain. DOSAGE: The patient received 8 ounces Ensure plus and 3.9 mCi of Technetium 99m Choletec. FINDINGS: There is normal hepatic extraction. The gallbladder is seen by 60 minutes. There is bilia ry to bowel clearance by 20 minutes. Ejection fraction is 68%. IMPRESSION: 1. There are minimally seen at 60 minutes which is consistent with borderline cholecystitis, correlat e clinically.
== END | disposition home or self-care (01) ==
LOC: RADNMMAIN 07:22
PROVIDERS: ATTEND Surgery Plastic and Reconstructive Surgery
DX: R10.9 Unspecified abdominal pain (principal)
CPT/HCPCS: 78226; A9537

== ENCOUNTER → 2020-09-28 | Outpatient (CLI) | payer OTHER ==
--- NOTE | 2020-09-29 13:01 | ECHOF ---
Referral Reason:R94.3 abnormal results cardiac studies MEASUREMENTS -------- HEIGHT: 177.8 cm WEIGHT: 136.1 kg BP: IVSd: 1.4 cm (0.6 - 1.1) LVIDd: 3.8 cm (3.9 - 5.3) LVPWd: 1.4 cm (0.6 - 1.1) EDV(Teich): 63 ml IVSs: 1.8 cm LVIDs: 2.4 cm LVPWs: 1.6 cm %IVS Thck: 35 % ESV(Teich): 19 ml EF(Teich): 70 % %FS: 38 % SV(Teich): 44 ml RVIDd: 3.5 cm (< 3.3) LALs A4C: 4.9 cm LAAs A4C: 15.4 cm LAESV A-L A4C: 41 ml LAESV MOD A4C: 38 ml Ao Diam: 3.1 cm (2.0 - 3.7) AV Cusp: 1.7 cm (1.5 - 2.6) EPSS: 0.2 cm MV E Bharathi: 0.47 m/s MV DecT: 144 ms MV Dec [place]: 3.3 m/s MV A Bharathi: 0.62 m/s MV E/A Ratio: 0.75 MV PHT: 42 ms LVOT Vmax: 0.81 m/s LVOT maxP.59 mmHg AV Vmax: 0.93 m/s AV maxP.46 mmHg TR Vmax: 2.18 m/s TR maxP.02 mmHg RAP: 5.00 mmHg RVSP: 24.02 mmHg MV EF SLOPE: 87.40 mm/s (70 - 150) MV EXCURSION: 19.32 mm (> 18.000) FINDINGS -------- Sinus rhythm. This was a technically difficult study with suboptimal views. The left ventricular size is normal. There is mild concentric left ventricular hypertrophy. Overa ll left ventricular systolic function is normal with, an EF between 55 - 60 %. The right ventricle is mildly enlarged. Normal LA size by volume 22+/-6 ml/m2. The right atrium was not well visualized. 5.0mg of Lumason was utilized for enhancement of images Interatrial and interventricular septum intact. There is no evidence of aortic regurgitation. There is no evidence of aortic stenosis. No mitral regurgitation. Mild tricuspid regurgitation present. There is no evidence of pulmonary hypertension. The right v entricular systolic pressure, as measured by Doppler, is 24.02mmHg. There is no pulmonic regurgitation present. The aortic root size is normal. IVC Not well visulized. There is no pericardial effusion. CONCLUSIONS -------- 1. The left ventricular size is normal. 2. There is mild concentric left ventricular hypertrophy. 3. Overall left ventricular systolic function is normal with, an EF between 55 - 60 %. 4. The right ventricle is mildly enlarged. 5. Mild tricuspid regurgitation present. [employer] APPRENTICE: Delphine Christensen RDCS
== END | disposition home or self-care (01) ==
LOC: RADECHMAIN 12:39
PROVIDERS: ATTEND Internal Medicine
DX: I07.1 Rheumatic tricuspid insufficiency (principal)
CPT/HCPCS: C8929; Q9950; 93306

== ENCOUNTER → 2020-12-06 | Outpatient (CLI) | payer OTHER ==
[2020-12-06 10:38] LABS: HCT 46.6 % (39.0-53.0); HGB 15.3 gm/dL (13.0-17.5); MCH 29.2 pg (25.0-35.0); MCHC 32.8 g/dL (31.0-37.0); MCV 89.1 fL (80.0-100.0); Mean Platelet Volume 8.7; Platelet Count 220 k/uL (150-450); RBC 5.23 m/uL (4.30-5.90); RDW 12.3 % (11.5-15.5); WBC 5.5 k/uL (3.8-10.6)
[2020-12-06 10:42] LABS: Potassium 3.8 mmol/L (3.5-5.1)
[2020-12-09 09:00] LABS: Albumin 3.7 g/dL (3.5-5.0); Calcium 9.8 mg/dL (8.4-10.2); Total Bilirubin 0.5 mg/dL (0.2-1.3); Total Protein 6.6 g/dL (6.3-8.2)
== END | disposition home or self-care (01) ==
LOC: LABPAT 09:50
PROVIDERS: ATTEND Anesthesiology
DX: Z01.812 Encounter for preprocedural laboratory examination (principal); K80.80 Other cholelithiasis without obstruction
CPT/HCPCS: 36415; 84132; 85027

== ENCOUNTER 2020-12-09 07:04 | Day surgery (SDC) | payer OTHER ==
[2020-12-05 09:49] VITALS: BMI 41.4
[~2020-12-09 07:04] MED LIST changes: +ACETAMINOPHEN TAB 500 MG TAB PO PRN; +DEXAMETHASONE SOD PHOSPHATE 4 MG/ML 1 ML VIAL IV ONE; +GABAPENTIN 300 MG CAP PO PRN; +HEPARIN SODIUM,PORCINE/PF 5,000 UNIT/0.5 ML SYRINGE SQ PRN; +HYDROmorphone 0.5 MG/0.5 ML SYRINGE IVP PRN; +INDOCYANINE GREEN 25 MG VIAL IV PRN; -LIDOCAINE 1% (10MG/ML) FOR IV START INTRADERMA PRN; +MELOXICAM 7.5 MG TAB PO PRN; +MIDAZOLAM 2 MG/2 ML VIAL IV PRN; +ONDANSETRON 4 MG/2 ML VIAL IVP ONE; +SCOPOLAMINE 1.5MG/72HR PATCH TRANSDERM ONE; +TAMSULOSIN 0.4 MG CAP.ER.24H PO PRN; +ceFAZolin 3 GM in SODIUM CHLORIDE 0.9% 100 ML IVPB PRN
[2020-12-09] MEDS ORDERED: INDOCYANINE GREEN 25 MG VIAL IV ONE (09:20)
[2020-12-09] MEDS ORDERED: PHENYLEPHRINE-0.9% NACL SYG 1,000 MCG/10 ML SYRINGE ONE (09:20)
[2020-12-09] MEDS ORDERED: LIDOCAINE 1% INJ 10MG/ML (20 ML MDV) ONE (09:20)
[2020-12-09] MEDS ORDERED: SUCCINYLCHOLINE CHLORIDE VIAL 200 MG/10 ML VIAL IV ONE (09:20)
[2020-12-09] MEDS ORDERED: ALBUTEROL HFA INHALER INHALATION ONE (09:20)
[2020-12-09] MEDS ORDERED: ROCURONIUM 10 MG/ML (5 ML VIAL) IV ONE (09:20)
[2020-12-09] MEDS ORDERED: MIDAZOLAM 2 MG/2 ML VIAL ONE (09:20)
[2020-12-09] MEDS ORDERED: GLYCOPYRROLATE 0.2 MG/ML 2 ML VIAL ONE (09:20)
[2020-12-09] MEDS ORDERED: NEOSTIGMINE 1 MG/ML 10 ML VIAL ONE (09:20)
[2020-12-09] MEDS ORDERED: fentaNYL (PF) 50 MCG/ML 2 ML AMP ONE (09:20)
[2020-12-09] MEDS ORDERED: PROPOFOL 10 MG/ML 20 ML VIAL IV ONE (09:20)
[2020-12-09] MEDS ORDERED: INDOCYANINE GREEN 25 MG VIAL IV STA (09:43)
[2020-12-09] MEDS ORDERED: LIDOCAINE 1%-EPI 1:100,000 20 ML VIAL SQ ONE (09:54)
[2020-12-09] MEDS ORDERED: LACTATED RINGERS 1,000 ML IV ONE (11:06)
[2020-12-09 11:39] VITALS: TEMP 96.8
[2020-12-09] MEDS ORDERED: oxyCODONE-APAP 5-325MG 1 EACH TAB PO PRN (12:01)
[2020-12-09] MEDS ORDERED: TAMSULOSIN 0.4 MG CAP.ER.24H PO PRN (12:01)
--- NOTE | 2020-12-09 12:04 | P.GSHP ---
History of Present Illness H&P Date: 12/09/20 CHIEF COMPLAINT: Cholecystitis HISTORY OF PRESENT ILLNESS: The patient is a 45-year-old male who presents with history of epigastric including right upper quadrant abdominal pain. He underwent diagnostic studies for the gallbladder. Separately his clinical picture was consistent with cholecystitis. Now he presents for surgical intervention. PAST MEDICAL HISTORY: Please see list PAST SURGICAL HISTORY: Please see list MEDICATIONS: Please see list ALLERGIES: Denies. SOCIAL HISTORY: No illicit drug use or recent tobacco use FAMILY HISTORY: Pertinent for gallbladder disease REVIEW OF ORGAN SYSTEMS: CONSTITUTIONAL: No reports of fevers or chills. HEENT: Denies any troubles with the vision or hearing. ENDOCRINE: No reports of hypothyroidism. No diabetes. RESPIRATORY: No recent pneumonias. CARDIOVASCULAR: Denies chest pain or palpitations GI: No blood in stools or constipation. MUSCULOSKELETAL: Has occasional joint pain including back pain. NEURO: No seizure disorders or headaches. No recent stroke. PSYCH: No depression or suicidal ideation. HEMATOLOGIC: No personal or family history of DVTs or pulmonary emboli. PHYSICAL EXAM: VITAL SIGNS: Afebrile vital signs stable GENERAL: Well-developed pleasant male in no acute distress. HEENT: No scleral icterus. Extraocular movements grossly intact. Moist buccal mucosa. NECK: Supple without lymphadenopathy. CHEST: Unlabored respirations. Equal bilateral excursions. CARDIOVASCULAR: Regular rate regular rhythm rhythm. Distal 2+ pulses. ABDOMEN: Soft, nondistended. MUSCULOSKELETAL: No clubbing, cyanosis, or edema. NEURO : No focal or lateralizing signs. Cranial nerves II-12 within normal limits. PSYCH: Alert and oriented to person, place and time. SKIN: Well perfused. Good skin turgor. ASSESSMENT: 1. Symptomatic gallstones. 2. Chronic cholecystitis PLAN: 1. Will need a robotic cholecystectomy possible open. Benefits and risks were described. 2. Heparin for DVT prophylaxis 5000 units. 3. Antibiotic prophylaxis 4. Patient is elevated risk due to morbid obesity including obstructive sleep apnea. Past Medical History Past Medical History: Coronary Artery Disease (CAD), COPD, GERD/Reflux, Hyperlipidemia, Hypertension, Myocardial Infarction (RI), Osteoarthritis (OA) Additional Past Medical History / Comment(s): neuropathy, MIGRAINE HEADACHE Last Myocardial Infarction Date:: 1991 History of Any Multi-Drug Resistant Organisms: None Reported Past Surgical History: No Surgical Hx Reported Additional Past Surgical History / Comment(s): COLON/EGD Past Anesthesia/Blood Transfusion Reactions: No Reported Reaction Additional Past Anesthesia/Blood Transfusion Reaction / Comment(s): FIRST ANESTHETIC Smoking Status: Former smoker - Past Family History Mother Family Medical History: Cancer Additional Family Medical History / Comment(s): BREAST CANCER Sister(s) Family Medical History: Cancer Additional Family Medical History / Comment(s): SISTER -CANCER Medications and Allergies Home Medications Medication Instructions Recorded Confirmed Type Amitriptyline HCl [Elavil] 25 mg PO HS 05/15/18 12/09/20 History Cholecalciferol [Vitamin D3 (25 5,000 unit PO DAILY 05/15/18 12/09/20 History Mcg = 1000 Iu)] Cyclobenzaprine [Flexeril] 10 mg PO TID PRN 05/15/18 12/09/20 History Gabapentin 800 mg PO QID 05/15/18 12/09/20 History Simvastatin [Zocor] 20 mg PO HS 05/15/18 12/09/20 History Triamterene-Hctz 37.5-25Mg 1 tab PO DAILY 05/15/18 12/09/20 History [Maxzide 37.5-25] Albuterol Sulfate [Ventolin HFA] 1 - 2 puff INHALATION RT-Q6H PRN 02/04/20 12/09/20 History Diphenoxylate HCl/Atropine 2 tab PO QID PRN 3 Days #24 tab 02/04/20 12/09/20 Rx [Lomotil 2.5-0.025 mg Tablet] Metoprolol Tartrate [Lopressor] 50 mg PO BID 02/04/20 12/09/20 History Omeprazole 40 mg PO DAILY 02/04/20 12/09/20 History Acetaminophen Tab [Tylenol Tab] 1,000 mg PO Q6HR PRN #30 tablet 12/09/20 Rx Ibuprofen [Motrin] 600 mg PO Q8HR PRN #30 tab 12/09/20 Rx Simethicone [Gas-X] 125 mg PO AC-TID PRN #20 cap 12/09/20 Rx Allergies Allergy/AdvReac Type Severity Reaction Status Date / Time No Known Allergies Allergy Verified 12/09/20 07:26 Surgical - Exam Vital Signs Temp Pulse Resp BP Pulse Ox 96.6 F L 90 20 152/80 98 12/09/20 07:23 12/09/20 07:23 12/09/20 07:23 12/09/20 07:23 12/09/20 07:23
[2020-12-09] MEDS ORDERED: KETOROLAC 15 MG/ML 1 ML VIAL ONE (12:10)
[2020-12-09] MEDS ORDERED: KETOROLAC 15 MG/ML 1 ML VIAL IVP ONE (12:13)
[2020-12-09 12:15] VITALS: RESP 18
[2020-12-09 12:50] VITALS: BP 130/88; PULSE 87
[2020-12-09] MEDS ORDERED: ACETAMINOPHEN TAB 500 MG TAB ONE (13:00)
[2020-12-09] MEDS ORDERED: ACETAMINOPHEN TAB 500 MG TAB PO ONE (13:01)
--- NOTE | 2020-12-10 11:17 | P.OP ---
Date of Procedure: 12/10/20 Description of Procedure: SURGEON: JAILENE RODRIGUEZ MD PREOPERATIVE DIAGNOSES: 1. Symptomatic gallstones 2. Morbid obesity due to excess calories, BMI 42.1 3. Chronic diarrhea 4. Hyperlipidemia 5. Chronic obstructive pulmonary disease with asthma 6. Hypertensive heart disease 7. Gastroesophageal reflux disease 8. Neuropathy 9. Chronic migraines 10. Coronary artery disease 11. History of myocardial infarction POSTOPERATIVE DIAGNOSES: 1. Symptomatic gallstones 2. Morbid obesity due to excess calories, BMI 42.1 3. Chronic diarrhea 4. Hyperlipidemia 5. Chronic obstructive pulmonary disease with asthma 6. Hypertensive heart disease 7. Gastroesophageal reflux disease 8. Neuropathy 9. Chronic migraines 10. Coronary artery disease 11. History of myocardial infarction 12. Chronic cholecystitis 13. Peritoneal adhesions, right upper quadrant 14. Hepatomegaly with early cirrhosis 15. Severe fatty liver disease OPERATION: 1. Robotic-assisted da Winston Xi laparoscopic lysis of adhesions over 30 minutes 2. Robotic-assisted da Winston Xi laparoscopic cholecystectomy, multiport with FIREFLY ESTIMATED BLOOD LOSS: 20 mL. SPECIMENS REMOVED: Gallbladder. COMPLICATIONS: None. OPERATIVE FINDINGS: 1. Moderate scarring over gallbladder with peritoneal adhesions, pericholecystic with features of chronic cholecystitis 2. Large gallstone over 3 cm with impaction into gallbladder and liver parenchyma 3. Hepatomegaly with macronodular early cirrhosis and fatty liver disease 4. Intrahepatic gallbladder adding complexity to the case INDICATIONS: The patient is a 45-year-old male who presents with symptomatic gallstones. Robotic assisted laparoscopic approach was described. Benefits and risks of the procedure including but not limited to bleeding, infection, injury to the biliary tree was described. Informed consent was obtained. DESCRIPTION OF PROCEDURE: Patient was brought to the operating room, placed in supine position. After general induction, the abdomen had been prepped and draped in standard sterile fashion. The robotic da Winston XI system was primed. After a timeout protocol was performed, the patient had been prepped and draped in standard sterile fashion. The patient was injected with indocyanine green. A 5 mm 0 degrees laparoscopic trocar entry was performed along the left upper quadrant. The abdomen insufflated to 15 mmHg pressure which was tolerated well. Diagnostic laparoscopy demonstrated no injury to bowel viscera or mesentery. The liver surface demonstrated micro-nodularity with hepatomegaly and severe fatty liver disease. Next, two 8 mm robotic ports were placed along the right upper abdomen. The camera 8-mm port was maintained along the epigastrium. Another 8 mm port was placed along the left upper abdominal wall after exchanging the 5 mm port. Please note that the ports were placed at least 10 to 15 cm away from the target anatomy of the gallbladder. The robot was docked along the left lateral abdomen. The patient was repositioned in reverse Trendelenburg position. Using a grasper for arm 3, a grasper for arm 4, including hook cautery for arm 1, the robotic system was docked and primed as described. Instruments were interchanged by the under water assistant including hook cautery, Bovie cautery and clip appliers. I had sat at the console. The gallbladder was scarred with peritoneal adhesions. Additionally, intrahepatic gallbladder was found adding complexity to the case. The gallstone was impacted into the gallbladder parenchyma including the liver fossa with minimal spillage of bile. Carefully combination abdomen down technique was performed followed by infundibular approach. Lysis of adhesions using hook cautery and vessel sealer was performed to free the gallbladder from the surrounding tissues. Bleeding along the liver bed was controlled using gauze as well as vessel sealer. Next attention was brought to the infundibulum and cystic structures. The infundibulum and cystic duct were dissected free from surrounding tissues. The cystic duct was isolated. FIREFLY was used to identify the cystic artery and cystic structures. A critical view of safety was obtained. Large PLASTIC clips were used throughout the entire case. Using a clip general farmer, 2 clips were placed at the junction of the infundibulum and cystic duct. The cystic duct was divided between clips. Next, the cystic artery was similarly clipped and cauterized. Electro-Bovie cautery including vessel sealer was used to remove the gallbladder from the hepatic fossa. Hemostasis was checked and found to be adequate. The robot was undocked. I re-scrubbed into the case. Using a 10 mm Endo Catch bag via the left upper quadrant incision, the specimen was removed from the abdominal cavity. Charly Sampson and 0 Vicryl was used to close the fascial defect. All pneumoperitoneum instruments were evacuated from the abdominal cavity. The incisions were reapproximated using 4-0 Monocryl in an interrupted subcuticular fashion. Please note along the trocar sites, local anesthetic was placed as a field block prior to insertion of all instruments. Liquid glue was applied to the skin. At the end of the procedure needle, sponge, and instrument count had been verified correct by the surgical assist. The patient was transferred to postanesthesia care unit in stable condition. Intraoperative films were shared with the patient's family. Plan - Discharge Summary Discharge Rx Participant: No New Discharge Prescriptions: New Ibuprofen [Motrin] 600 mg PO Q8HR PRN #30 tab PRN Reason: Pain Simethicone [Gas-X] 125 mg PO AC-TID PRN #20 cap PRN Reason: Pain Acetaminophen Tab [Tylenol Tab] 1,000 mg PO Q6HR PRN #30 tablet PRN Reason: Pain Continue Simvastatin [Zocor] 20 mg PO HS Cholecalciferol [Vitamin D3 (25 Mcg = 1000 Iu)] 5,000 unit PO DAILY Cyclobenzaprine [Flexeril] 10 mg PO TID PRN PRN Reason: Muscle Spasm Triamterene-Hctz 37.5-25Mg [Maxzide 37.5-25] 1 tab PO DAILY Gabapentin 800 mg PO QID Amitriptyline HCl [Elavil] 25 mg PO HS Albuterol Sulfate [Ventolin HFA] 1 - 2 puff INHALATION RT-Q6H PRN PRN Reason: Shortness Of Breath Metoprolol Tartrate [Lopressor] 50 mg PO BID Omeprazole 40 mg PO DAILY Diphenoxylate HCl/Atropine [Lomotil 2.5-0.025 mg Tablet] 2 tab PO QID PRN 3 Days #24 tab PRN Reason: Diarrhea Discharge Medication List Amitriptyline HCl [Elavil] 25 mg PO HS 05/15/18 [History] Cholecalciferol [Vitamin D3 (25 Mcg = 1000 Iu)] 5,000 unit PO DAILY 05/15/18 [History] Cyclobenzaprine [Flexeril] 10 mg PO TID PRN 05/15/18 [History] Gabapentin 800 mg PO QID 05/15/18 [History] Simvastatin [Zocor] 20 mg PO HS 05/15/18 [History] Triamterene-Hctz 37.5-25Mg [Maxzide 37.5-25] 1 tab PO DAILY 05/15/18 [History] Albuterol Sulfate [Ventolin HFA] 1 - 2 puff INHALATION RT-Q6H PRN 02/04/20 [History] Diphenoxylate HCl/Atropine [Lomotil 2.5-0.025 mg Tablet] 2 tab PO QID PRN 3 Days #24 tab 02/04/20 [Rx] Metoprolol Tartrate [Lopressor] 50 mg PO BID 02/04/20 [History] Omeprazole 40 mg PO DAILY 02/04/20 [History] Acetaminophen Tab [Tylenol Tab] 1,000 mg PO Q6HR PRN #30 tablet 12/09/20 [Rx] Ibuprofen [Motrin] 600 mg PO Q8HR PRN #30 tab 12/09/20 [Rx] Simethicone [Gas-X] 125 mg PO AC-TID PRN #20 cap 12/09/20 [Rx] Follow up Appointment(s)/Referral(s): Jailene Rodriguez MD [STAFF PHYSICIAN] - 12/20/20 3:30 pm Patient Instructions/Handouts: *[facility] - Managing Your Pain After Surgery Without Opioids, *[facility] - (Anesthesia) Discharge Instructions Outpatient Surgery, Low Fat Diet (DC), Laparoscopic Cholecystectomy (DC) Discharge Disposition: HOME SELF-CARE
== END 2020-12-09 13:40 | disposition home or self-care (01) ==
LOC: OR 07:04
PROVIDERS: ATTEND Surgery Plastic and Reconstructive Surgery
DX: K80.10 Calculus of gallbladder with chronic cholecystitis without obstruction (principal); E78.5 Hyperlipidemia, unspecified; G43.909 Migraine, unspecified, not intractable, without status migrainosus; G47.33 Obstructive sleep apnea (adult) (pediatric); G62.9 Polyneuropathy, unspecified; I11.9 Hypertensive heart disease without heart failure; I25.10 Atherosclerotic heart disease of native coronary artery without angina pectoris; I25.2 Old myocardial infarction; J44.9 Chronic obstructive pulmonary disease, unspecified; K21.9 Gastro-esophageal reflux disease without esophagitis; K52.9 Noninfective gastroenteritis and colitis, unspecified; K66.0 Peritoneal adhesions (postprocedural) (postinfection); K76.0 Fatty (change of) liver, not elsewhere classified; M19.90 Unspecified osteoarthritis, unspecified site; E66.01 Morbid (severe) obesity due to excess calories; Z68.41 Body mass index [BMI] 40.0-44.9, adult; Z79.1 Long term (current) use of non-steroidal anti-inflammatories (NSAID); Z79.899 Other long term (current) drug therapy; Z80.3 Family history of malignant neoplasm of breast; Z87.891 Personal history of nicotine dependence
CPT/HCPCS: 47563; 88304; J2250; J0330; J1100; J2710; J0690; J2405; J2001; J3010; J1885; J2370; J2704; J1644